=== PATIENT | male | born 1955 | race African-American/Black ===

== ENCOUNTER 2017-02-22 07:10 | Emergency (ER) | payer MEDICAID ==
[~2017-02-22] VITALS: Ht 185.4 cm; Wt 72.5 kg
[2017-02-22 07:12] VITALS: BP 121/81
== END 2017-02-22 09:10 | disposition left against medical advice (07) ==
LOC: ED 09:00
DX: F20.89 Other schizophrenia (principal); Z59.0 Homelessness
CPT/HCPCS: 99284

== ENCOUNTER 2017-04-10 03:16 | Emergency (ER) | payer MEDICAID ==
[~2017-04-10] VITALS: Ht 188 cm; Wt 80.0 kg
[2017-04-10] MEDS ORDERED: ACETAMINOPHEN 325 MG TABLET ONE (03:56)
[2017-04-10] MEDS ORDERED: ACETAMINOPHEN 325 MG TABLET PO ONE (04:00)
[2017-04-10 04:10] VITALS: BP 134/88
== END 2017-04-10 04:11 | disposition home or self-care (01) ==
LOC: ED 03:56
DX: M79.671 Pain in right foot (principal); M79.672 Pain in left foot; F20.9 Schizophrenia, unspecified
CPT/HCPCS: 99282

== ENCOUNTER 2017-08-05 00:31 | Emergency (ER) | payer MEDICAID ==
[~2017-08-05] VITALS: Ht 188 cm; Wt 80.0 kg
[2017-08-05 00:37] VITALS: BP 118/82
== END 2017-08-05 01:25 | disposition home or self-care (01) ==
LOC: ED 01:19
DX: B86 Scabies (principal); F20.9 Schizophrenia, unspecified; Z72.89 Other problems related to lifestyle; Z60.9 Problem related to social environment, unspecified
CPT/HCPCS: 99281

== ENCOUNTER 2017-10-26 20:23 | Emergency (ER) | payer MEDICAID ==
[~2017-10-26] VITALS: Ht 188 cm; Wt 97.0 kg
[2017-10-26 21:24] VITALS: BP 124/78
== END 2017-10-26 21:27 | disposition home or self-care (01) ==
LOC: ED 21:21
DX: B86 Scabies (principal); F20.9 Schizophrenia, unspecified; F17.200 Nicotine dependence, unspecified, uncomplicated
CPT/HCPCS: 99283

== ENCOUNTER 2018-01-05 20:14 | Emergency (ER) | payer MEDICAID ==
[~2018-01-05] VITALS: Ht 193 cm; Wt 80.0 kg
[2018-01-05 20:24] VITALS: BP 138/91
== END 2018-01-05 21:55 | disposition home or self-care (01) ==
LOC: ED 21:16
DX: M79.671 Pain in right foot (principal); M79.672 Pain in left foot; Z72.9 Problem related to lifestyle, unspecified; F17.200 Nicotine dependence, unspecified, uncomplicated
CPT/HCPCS: 99281

== ENCOUNTER 2018-01-06 09:05 | Emergency (ER) | payer MEDICAID ==
[~2018-01-06] VITALS: Ht 185.4 cm; Wt 75.2 kg
[2018-01-06 09:07] VITALS: BP 109/75
== END 2018-01-06 11:12 | disposition home or self-care (01) ==
LOC: ED 11:10
DX: S90.812A Abrasion, left foot, initial encounter (principal); S90.811A Abrasion, right foot, initial encounter; X58.XXXA Exposure to other specified factors, initial encounter; Y93.89 Activity, other specified; Y92.410 Unspecified street and highway as the place of occurrence of the external cause; Y99.8 Other external cause status
CPT/HCPCS: 99281

== ENCOUNTER 2019-01-22 03:48 | Inpatient (IN) | payer MEDICAID, OTHER ==
[~2019-01-22] VITALS: Ht 185.4 cm; Wt 74.0 kg
[2019-01-22] MEDS ORDERED: SODIUM CHLORIDE FLUSH 10ML SYR IVF ONE (05:30)
[2019-01-22 05:59] LABS: BASOPHILS # (AUTO) 0.01 x10^3/uL (0-0.1); BASOPHILS % (AUTO) 0 % (0-1); EOSINOPHILS # (AUTO) 0.04 x10^3/uL (0-0.4); EOSINOPHILS % (AUTO) 1 % (1-7); LYMPHOCYTES # (AUTO) 0.56 x10^3/uL (1-3.4); LYMPHOCYTES % (AUTO) 11 % (22-44); MD NO; MEAN CORPUSCULAR HEMOGLOBIN 31.6 pg (27.5-34.5); MEAN CORPUSCULAR HGB CONC 33.4 g/dL (33.2-36.2); MEAN CORPUSCULAR VOLUME 94.5 fL (81-97); MEAN PLATELET VOLUME 6.6 fL (7.4-10.4); MONOCYTES # (AUTO) 0.18 x10^3/uL (0.2-0.8); MONOCYTES % (AUTO) 3 % (2-9); NEUTROPHILS # (AUTO) 4.45 x10^3/uL (1.8-6.8); NEUTROPHILS % (AUTO) 85 % (42-75); PLATELET COUNT 284 x10^3/uL (130-400); RED BLOOD COUNT 4.73 x10^6/uL (4.38-5.82); RED CELL DISTRIBUTION WIDTH 13.1 % (9.4-14.8)
[2019-01-22 06:11] LABS: ALBUMIN 3.2 g/dL (3.4-5.0); ANION GAP 4 mmol/L (5-15); CHLORIDE 105 mmol/L (98-107)
[2019-01-22 06:14] LABS: ALANINE AMINOTRANSFERASE 22 U/L (12-78); ALKALINE PHOSPHATASE 109 U/L (45-117); BILIRUBIN,TOTAL 0.8 mg/dL (0.2-1.0); CREATININE 1.06 mg/dL (0.7-1.3); TOTAL PROTEIN 7.8 g/dL (6.4-8.2)
[2019-01-22] MEDS ORDERED: OMNIPAQUE 350 MG/ML, 100ML BOTTLE ONE (06:39)
[2019-01-22] MEDS ORDERED: SODIUM CHLORIDE 0.9% 1,000 ML IV ONE (07:30)
[2019-01-22 08:00] LABS: MICROSCOPIC NOT IND
[2019-01-22 08:07] LABS: CULTURE INDICATED? NO
[2019-01-22] MEDS ORDERED: ONDANSETRON ODT 4 MG PO PRN (09:00)
[2019-01-22] MEDS ORDERED: ONDANSETRON 2MG/ML, 2ML IVPush PRN (09:00)
[2019-01-22] MEDS ORDERED: LABETALOL 5MG/ML, 20ML IVPush PRN (09:00)
[2019-01-22] MEDS ORDERED: BUTALB/APAP/CAFFEINE 50MG/325MG/40MG PO PRN ×2 (09:00)
[2019-01-22] MEDS ORDERED: ACETAMINOPHEN 325 MG TABLET PO PRN (09:00)
[2019-01-22] MEDS ORDERED: hydrALAzine 20 MG/ML, 1ML IVPush PRN (09:00)
[2019-01-22] MEDS: NICOTINE 14MG/24 HR PATCH.TD24 TD SCH (09:00)
[2019-01-22] MEDS ORDERED: GUAIFENESIN/DM 200-20MG, 10ML UDC PO PRN (09:00)
[2019-01-22] MEDS ORDERED: POLYETHYLENE GLYCOL 17 GM PACKET PO PRN (09:00)
[2019-01-22] MEDS ORDERED: TRAZODONE 50MG TABLET PO PRN (09:00)
[2019-01-22] MEDS ORDERED: HYDROmorphone 2 MG/ML, 1ML IVPush PRN (09:00)
[2019-01-22] MEDS ORDERED: QUETIAPINE 100MG TABLET ONE (12:27)
[2019-01-22] MEDS: QUETIAPINE 100MG TABLET PO SCH ×2 (12:37→20:36)
[2019-01-22 13:40] VITALS: BP 110/68
[2019-01-22 21:04] VITALS: BP 112/69
[2019-01-23 01:45] VITALS: BP 105/67
[2019-01-23 05:39] LABS: BASOPHILS # (AUTO) 0.02 x10^3/uL (0-0.1); BASOPHILS % (AUTO) 0 % (0-1); EOSINOPHILS # (AUTO) 0.14 x10^3/uL (0-0.4); EOSINOPHILS % (AUTO) 2 % (1-7); LYMPHOCYTES % (AUTO) 15 % (22-44); MD NO; MEAN CORPUSCULAR HEMOGLOBIN 31.6 pg (27.5-34.5); MEAN CORPUSCULAR HGB CONC 32.7 g/dL (33.2-36.2); MEAN CORPUSCULAR VOLUME 96.5 fL (81-97); MEAN PLATELET VOLUME 6.8 fL (7.4-10.4); MONOCYTES # (AUTO) 0.38 x10^3/uL (0.2-0.8); MONOCYTES % (AUTO) 6 % (2-9); NEUTROPHILS # (AUTO) 4.49 x10^3/uL (1.8-6.8); NEUTROPHILS % (AUTO) 76 % (42-75); PLATELET COUNT 271 x10^3/uL (130-400); RED BLOOD COUNT 4.21 x10^6/uL (4.38-5.82); RED CELL DISTRIBUTION WIDTH 13.2 % (9.4-14.8)
[2019-01-23 05:44] LABS: ANION GAP 2 mmol/L (5-15); CALCIUM 8.6 mg/dL (8.5-10.1); CHLORIDE 108 mmol/L (98-107)
[2019-01-23 05:45] LABS: CREATININE 0.98 mg/dL (0.7-1.3)
[2019-01-23 08:30] VITALS: BP 110/68
[2019-01-23] MEDS ORDERED: HYDROmorphone 2 MG/ML, 1ML IVPush PRN (09:00)
[2019-01-23] MEDS: NICOTINE 14MG/24 HR PATCH.TD24 TD SCH (09:00)
[2019-01-23] MEDS: TAMSULOSIN 0.4 MG CAP.ER.24H PO SCH (09:09)
[2019-01-23] MEDS: QUETIAPINE 100MG TABLET PO SCH ×2 (09:09→20:33)
[2019-01-23] MEDS ORDERED: OMNIPAQUE 350 MG/ML, 100ML BOTTLE ONE (09:43)
[2019-01-23 13:30] VITALS: BP 126/74
[2019-01-23 20:39] VITALS: BP 103/67
[2019-01-24 03:26] VITALS: BP 104/66
[2019-01-24 06:13] LABS: BASOPHILS # (AUTO) 0.01 x10^3/uL (0-0.1); BASOPHILS % (AUTO) 0 % (0-1); EOSINOPHILS # (AUTO) 0.13 x10^3/uL (0-0.4); EOSINOPHILS % (AUTO) 2 % (1-7); LYMPHOCYTES # (AUTO) 0.91 x10^3/uL (1-3.4); LYMPHOCYTES % (AUTO) 16 % (22-44); MD NO; MEAN CORPUSCULAR HEMOGLOBIN 31.7 pg (27.5-34.5); MEAN CORPUSCULAR HGB CONC 32.8 g/dL (33.2-36.2); MEAN CORPUSCULAR VOLUME 96.9 fL (81-97); MEAN PLATELET VOLUME 6.7 fL (7.4-10.4); MONOCYTES # (AUTO) 0.49 x10^3/uL (0.2-0.8); MONOCYTES % (AUTO) 9 % (2-9); NEUTROPHILS # (AUTO) 4.21 x10^3/uL (1.8-6.8); NEUTROPHILS % (AUTO) 73 % (42-75); PLATELET COUNT 259 x10^3/uL (130-400); RED BLOOD COUNT 4.23 x10^6/uL (4.38-5.82); RED CELL DISTRIBUTION WIDTH 13.6 % (9.4-14.8)
[2019-01-24 06:31] LABS: ANION GAP 3 mmol/L (5-15); CALCIUM 8.6 mg/dL (8.5-10.1); CHLORIDE 106 mmol/L (98-107); CREATININE 1.14 mg/dL (0.7-1.3)
[2019-01-24 08:08] VITALS: BP 100/67
[2019-01-24] MEDS: NICOTINE 14MG/24 HR PATCH.TD24 TD SCH (09:00)
[2019-01-24] MEDS: QUETIAPINE 100MG TABLET PO SCH ×2 (09:12→20:43)
[2019-01-24] MEDS: TAMSULOSIN 0.4 MG CAP.ER.24H PO SCH (09:12)
[2019-01-24 14:09] VITALS: BP 110/72
[2019-01-24 21:46] VITALS: BP 107/69
[2019-01-25 01:35] VITALS: BP 92/59
[2019-01-25 07:16] VITALS: BP 104/67
[2019-01-25] MEDS: NICOTINE 14MG/24 HR PATCH.TD24 TD SCH (07:21)
[2019-01-25] MEDS: QUETIAPINE 100MG TABLET PO SCH ×2 (07:59→19:52)
[2019-01-25] MEDS: TAMSULOSIN 0.4 MG CAP.ER.24H PO SCH (07:59)
[2019-01-25 08:22] LABS: BASOPHILS # (AUTO) 0.03 x10^3/uL (0-0.1); BASOPHILS % (AUTO) 1 % (0-1); EOSINOPHILS # (AUTO) 0.14 x10^3/uL (0-0.4); EOSINOPHILS % (AUTO) 3 % (1-7); LYMPHOCYTES # (AUTO) 0.71 x10^3/uL (1-3.4); LYMPHOCYTES % (AUTO) 15 % (22-44); MD NO; MEAN CORPUSCULAR HEMOGLOBIN 31.7 pg (27.5-34.5); MEAN CORPUSCULAR HGB CONC 32.6 g/dL (33.2-36.2); MEAN PLATELET VOLUME 6.7 fL (7.4-10.4); MONOCYTES # (AUTO) 0.36 x10^3/uL (0.2-0.8); MONOCYTES % (AUTO) 8 % (2-9); NEUTROPHILS % (AUTO) 73 % (42-75); PLATELET COUNT 252 x10^3/uL (130-400); RED BLOOD COUNT 4.23 x10^6/uL (4.38-5.82); RED CELL DISTRIBUTION WIDTH 13.4 % (9.4-14.8)
[2019-01-25] MEDS ORDERED: TAMS-11 PO (12:23)
[2019-01-25] MEDS ORDERED: QUET100T PO (12:23)
[2019-01-25] MEDS ORDERED: POLY17PO5 PO (12:23)
[2019-01-25] MEDS ORDERED: BENZ100C PO (12:23)
[2019-01-25 13:26] VITALS: BP 102/66
[2019-01-25] MEDS ORDERED: BENZONATATE 100 MG CAPSULE PO SCH (16:00)
[2019-01-25 19:15] VITALS: BP 96/55
[2019-01-26 02:27] VITALS: BP 110/73
[2019-01-26 07:13] VITALS: BP 130/80
[2019-01-26] MEDS: QUETIAPINE 100MG TABLET PO SCH (08:43)
[2019-01-26] MEDS: NICOTINE 14MG/24 HR PATCH.TD24 TD SCH (08:44)
[2019-01-26] MEDS ORDERED: TAMSULOSIN 0.4 MG CAP.ER.24H PO SCH (09:00)
[2019-01-26] MEDS ORDERED: PRED10TA PO (10:29)
[2019-01-26] MEDS ORDERED: ALBU8.5H8 INH (10:30)
[2019-01-26] MEDS ORDERED: TIOT18CA INH (10:31)
[2019-01-26] MEDS ORDERED: BUDE10.2 INH (10:37)
== END 2019-01-26 13:44 | disposition home or self-care (01) | DRG 555 ==
LOC: ED 05:52 → EDIP 07:34 → 3N 13:08 → DCLOUNGE 01-26 13:25
PROVIDERS: ADMIT Family Medicine; ATTEND Hospitalist
DX: M79.81 Nontraumatic hematoma of soft tissue (principal); J96.01 Acute respiratory failure with hypoxia; E46 Unspecified protein-calorie malnutrition; Z68.21 Body mass index [BMI] 21.0-21.9, adult; F17.210 Nicotine dependence, cigarettes, uncomplicated; F20.9 Schizophrenia, unspecified; N26.1 Atrophy of kidney (terminal); Z59.0 Homelessness
CPT/HCPCS: 36415; 71046; 74174; 74177; 80048; 80053; 81003; 83690; 83735; 84100; 85025; 93005; 99285; G0103; G0378; J1170; Q9967; J7030; J7512

== ENCOUNTER 2019-01-28 22:49 | Emergency (ER) | payer MEDICAID, OTHER ==
[~2019-01-28] VITALS: Ht 185.4 cm; Wt 77.8 kg
[~2019-01-28 22:49] MED LIST: ALBU8.5H8 INH; BENZ100C PO; BUDE10.2 INH; POLY17PO5 PO; PRED10TA PO; QUET100T PO; TAMS-11 PO; TIOT18CA INH
[2019-01-28 23:55] LABS: BASOPHILS # (AUTO) 0.01 x10^3/uL (0-0.1); BASOPHILS % (AUTO) 0 % (0-1); EOSINOPHILS % (AUTO) 0 % (1-7); LYMPHOCYTES % (AUTO) 6 % (22-44); MD NO; MEAN CORPUSCULAR HEMOGLOBIN 31.5 pg (27.5-34.5); MEAN CORPUSCULAR HGB CONC 32.8 g/dL (33.2-36.2); MEAN PLATELET VOLUME 6.7 fL (7.4-10.4); MONOCYTES # (AUTO) 0.12 x10^3/uL (0.2-0.8); MONOCYTES % (AUTO) 2 % (2-9); NEUTROPHILS % (AUTO) 92 % (42-75); PLATELET COUNT 277 x10^3/uL (130-400); RED BLOOD COUNT 4.99 x10^6/uL (4.38-5.82); RED CELL DISTRIBUTION WIDTH 13.3 % (9.4-14.8)
[2019-01-28 23:58] LABS: ALBUMIN 3.9 g/dL (3.4-5.0); ANION GAP 7 mmol/L (5-15); CALCIUM 9.4 mg/dL (8.5-10.1); CHLORIDE 98 mmol/L (98-107); CREATININE 1.64 mg/dL (0.7-1.3)
--- NOTE | 2019-01-29 00:03 | NUR ---
THIS IS A 63 YO MALE COMING IN FOR "PAIN WHERE MY HEMATOMA IS" WHILE POINTING TO HIS URQ ABDOMEN. PATIENT IS SPEAKING ERRATICALLY WITH DARTING EYES, WHEN ASKED IF HE IS HAVING VISUAL HALLUCINATIONS, PATIENT STATES "SOMETIMES I SEE THINGS THAT AREN'T SUPPOSED TO BE THERE AND I DON'T KNOW WHY". DENIES SI/HI. PATIENT WAS C/O CHEST PAIN WITH COUGH IN TRIAGE, PLACED ON ENERGY MANAGEMENT SPECIALIST, NSR NOTED. DENIES CHEST PAIN IN ED ROOM. ON CONTINUOUS SPO2 AT 92%, CYCLE BP Q1HR. DENIES NEEDS AT THIS TIME.
[2019-01-29] MEDS ORDERED: KETOROLAC 30 MG/1 ML ONE (00:29)
--- NOTE | 2019-01-29 00:52 | NUR ---
PATIENT MEDICATED PER EMAR, TOLERATED WELL. DENIES NEEDS AT THIS TIME.
[2019-01-29] MEDS ORDERED: KETOROLAC 30 MG/1 ML IM ONE (01:00)
[2019-01-29 01:08] VITALS: BP 128/84
--- NOTE | 2019-01-29 01:11 | NUR ---
Patient/Caregiver given discharge instructions and they have confirmed that they understand the instructions. Patient ambulatory with steady gait.
== END 2019-01-29 01:25 | disposition home or self-care (01) ==
LOC: ED 01-29 01:19
DX: R07.89 Other chest pain (principal); F17.200 Nicotine dependence, unspecified, uncomplicated
CPT/HCPCS: 36415; 71046; 80048; 82040; 85025; 93005; 96372; 99284; J1885

== ENCOUNTER 2019-03-07 22:26 | Emergency (ER) | payer MEDICAID ==
[~2019-03-07] VITALS: Ht 185.4 cm; Wt 81.7 kg
--- NOTE | 2019-03-07 22:48 | NUR ---
TASK RN: PT PRESENTING TO ER FOR SI. PT STS "I RAN OUT OF MY INHALER THAT MADE THE VOICES STOP ABOUT 1.5WKS AGO. IM HERE TO GET ANOTHER ONE." PT STS FEELING LIKE HE IS GOING TO HARM SELF BECAUSE "THE VOICES ARE LEADING HIM WITH A COMPASS TO DO IT AND ITS THE ONLY WAY OUT". NO PLAN AT THIS TIME. PAST HX OF CUTTING WRISTS. PT CURRENTLY UNDRESSING, BELONGINGS GETTING LOCKED IN LOCKER. PT COOPERATIVE WITH STAFF REQUESTS AT THIS TIME. REPORT GIVEN TO BLAIRE DELA CRUZ.
--- NOTE | 2019-03-07 23:04 | NUR ---
Midlevel provider at bedside, assessing patient. Awaiting orders
[2019-03-07 23:44] LABS: ALBUMIN 3.5 g/dL (3.4-5.0); ANION GAP 9 mmol/L (5-15); CALCIUM 8.7 mg/dL (8.5-10.1); CHLORIDE 103 mmol/L (98-107); CREATININE 1.19 mg/dL (0.7-1.3); SALICYLATE LEVEL 3.2 mg/dL (2.8-20.0)
[2019-03-07 23:47] LABS: MEAN CORPUSCULAR HEMOGLOBIN 31.6 pg (27.5-34.5); MEAN CORPUSCULAR HGB CONC 33.2 g/dL (33.2-36.2); MEAN CORPUSCULAR VOLUME 95.2 fL (81-97); MEAN PLATELET VOLUME 7.2 fL (7.4-10.4); PLATELET COUNT 230 x10^3/uL (130-400); RED BLOOD COUNT 4.83 x10^6/uL (4.38-5.82); RED CELL DISTRIBUTION WIDTH 13.6 % (9.4-14.8)
[2019-03-08 00:21] LABS: BASOPHILS # (AUTO) 0.06 x10^3/uL (0-0.1); BASOPHILS % (AUTO) 1 % (0-1); EOSINOPHILS # (AUTO) 0.08 x10^3/uL (0-0.4); EOSINOPHILS % (AUTO) 2 % (1-7); LYMPHOCYTES # (AUTO) 1.33 x10^3/uL (1-3.4); LYMPHOCYTES % (AUTO) 30 % (22-44); MD SCAN; MONOCYTES # (AUTO) 0.31 x10^3/uL (0.2-0.8); MONOCYTES % (AUTO) 7 % (2-9); NEUTROPHILS # (AUTO) 2.68 x10^3/uL (1.8-6.8); NEUTROPHILS % (AUTO) 60 % (42-75)
--- NOTE | 2019-03-08 01:26 | NUR ---
TASK RN: PT COMPLIANT WITH VS. PT AWARE OF NEED FOR UA, STATES "I CAN'T RIGHT NOW".
--- NOTE | 2019-03-08 01:33 | NUR ---
Primary RN additional note added. Patient has been instructed to provide a urine sample; initially at 03/08 0000 then again about 010. Task RN also followed up and asked around 012. Primary Rn asked again at 0135 Patient states every time is unable to provide one at the moment but will be able to in the future, reports no problems urinating previously. No suprapubic tenderness.
--- NOTE | 2019-03-08 02:02 | NUR ---
Sitter in hallway, within visual contact within two steps of patient. Patient resting comfortably, awaiting urinary drug screen for disposition
[2019-03-08 02:09] LABS: AMPHETAMINE SCREEN, URINE Negative (Negative); BARBITURATE SCREEN, URINE Negative (Negative); BENZODIAZEPINE SCREEN, URINE Negative (Negative); CANNABINOID SCREEN, URINE Negative (Negative); COCAINE SCREEN, URINE Negative (Negative); METHADONE SCREEN, URINE Negative (Negative); OPIATE SCREEN, URINE Negative (Negative)
--- NOTE | 2019-03-08 02:26 | NUR ---
patient able to provide urine sample, collected and sent to lab. Labs resulted, orders placed for telepsych consult. Telepsych monitor at bedside.
--- NOTE | 2019-03-08 06:37 | NUR ---
SOC JUST SPOKE WITH DR. YO. PATIENT IS TO BE PLACED ON A HOLD.
--- NOTE | 2019-03-08 06:38 | NUR ---
Spoke with Dr. San. Gave report on vital signs and patients verbalizations for needing to come by ambulance to the emergency room. Psychiatrist completed evaluation over telemedicine unit. Patient returned to sleep after evaluation complete.
--- NOTE | 2019-03-08 06:55 | NUR ---
Gave report to diurnal RN. Revied patients recent complaint of running out of medications and now hearing voices telling him to kill himself and patient on legal hold at the moment. Awaiting placement.
--- NOTE | 2019-03-08 07:00 | NUR ---
REPORT RECEIVED. PT CURRENTLY SLEEPING WITH COVERS HIS HEAD, RESPIRATION UNIMPEEDED. SITTER OUTSIDE OF ROOM WITHIN SIGHT OF PT
--- NOTE | 2019-03-08 07:53 | NUR ---
ADDITIONAL REQUEST FOR SI BREAKFAST TRAY REQUESTED. PT CONTINUES TO BE RESTING IN SIT WITH SITTER.
--- NOTE | 2019-03-08 07:59 | NUR ---
ATTEMPTED TO DO PTS ASSESSMENT. MINIMALLY COMPELTED WHEN PT BECAME EXCESSIVELY AGGITATED AND YELLING. PT RETRACKED LEFT ARM IN THE APPERANCE OF WANTING TO STRIKE THIS RN. RN STOPPED ASSESSMENT AND INQUIRED ABOUT PTS WELL BEING, IF HE WAS HEARING THE VOICES, HURTING. PT STATED HE WAS HEARING THE VOICES AGAIN. REPORTS THE VOICES ARE FRIGHTENING BUT NOT CURRENTLY MAKING ANY SENCE. PT LAID BACK ON GURNEY AND COVERED HIS HEAD, CONTINUING TO YELL OUT. APPEARS TO BE YELLING AT THE VOICES. SITTER IN DIRECT SIGHT OF PT. ROOM SECURED FOR SI PRECAUTIONS. WILL ATTEMPT VS WHEN MEAL TRAY PROVIDED
--- NOTE | 2019-03-08 08:47 | NUR ---
BREAKFAST TRAY PROVIDED. PT CLOSED CURTAIN. RN IN ROOM AND DISCUSSED THAT CURTAIN COULD NOT BE CLOSED, THAT PT REQUIRED DIRECT VIEWING D/T CURRENT POC. PT YELLING THAT HE NEEDED PRIVACY. DOOR CLOSED FOR PTS PRIVACY, CURTAIN LEFT OPEN. SITTER OUTSIDE OF ROOM WITH DIRECT VIEW OF PT.
[2019-03-08 08:49] VITALS: BP 107/66
--- NOTE | 2019-03-08 09:53 | NUR ---
pt asleep. door open, curtain open. In direct line of slight of sitter. Respiration unimpeeded. no s/s of distress at this time. SI precautions maintained.
--- NOTE | 2019-03-08 11:00 | NUR ---
PT ASLEEP IN BED, BLANKET PULLED UP. RESPIRATIONS EVEN AND UNLABORED ON RA. NAD NOTED AT THIS TIME. SITTER OUTSIDE OF ROOM FOR DIRECT OBSERVATION AND Q15 MIN SAFETY CHECKS. PER THROUGHPUT, PT LIKELY TO TRANSFER TO .
--- NOTE | 2019-03-08 12:03 | NUR ---
pt asleep. door open, curtain open. In direct line of slight of sitter. Respiration unimpeeded. no s/s of distress at this time. SI precautions maintained. Pt allowed for assessment to be completed.
== END 2019-03-08 13:39 ==
LOC: ED 23:23
DX: F20.9 Schizophrenia, unspecified (principal)
CPT/HCPCS: 36415; 80048; 80307; 82040; 85025; 85379; 99285

== ENCOUNTER 2019-03-08 13:07 | Inpatient (IN) | payer MEDICAID ==
[~2019-03-08] VITALS: Ht 185.4 cm; Wt 67.6 kg
[2019-03-08 13:30] VITALS: BP 108/72
[2019-03-08 15:14] LABS: CHOL/HDL RATIO 2.5; FREE T4 (FREE THYROXINE) 1.27 ng/dL (0.76-1.46); LDL/HDL RATIO 1.2 (0.5-3.0)
[2019-03-08 16:10] VITALS: BP 108/72
[2019-03-08] MEDS ORDERED: POLYETHYLENE GLYCOL 17 GM PACKET PO PRN ×2 (16:30→17:30)
[2019-03-08] MEDS ORDERED: DOCUSATE 100 MG CAPSULE PO PRN ×2 (16:30→17:30)
[2019-03-08] MEDS ORDERED: ACETAMINOPHEN 325 MG TABLET PO PRN ×2 (16:30→17:30)
[2019-03-08] MEDS ORDERED: ONDANSETRON ODT 4 MG PO PRN (17:30)
[2019-03-08] MEDS ORDERED: IPRATROPIUM 0.5 MG/2.5 ML INHA NPPB PRN (18:00)
[2019-03-08] MEDS ORDERED: ALBUTEROL SULFATE 2.5 MG/3 ML NPPB PRN (18:00)
[2019-03-08] MEDS ORDERED: BUDESONIDE 0.5 MG/2 ML INHA NPPB PRN (18:00)
[2019-03-08] MEDS ORDERED: ALBUTEROL/IPRATROPIUM 2.5MG/0.5MG, 3 ML NPPB PRN (19:00)
[2019-03-08 20:36] VITALS: BP 114/79
[2019-03-08] MEDS: QUETIAPINE 100MG TABLET PO SCH (20:51)
[2019-03-08] MEDS: TEMPLATE NON-FORMULARY MED. (Budesonide/Formoterol Fumarate (Symbicort 160-4.5 Mcg Inhaler INH SCH (21:00)
[2019-03-09 07:11] VITALS: BP 109/72
[2019-03-09] MEDS: TEMPLATE NON-FORMULARY MED. (Budesonide/Formoterol Fumarate (Symbicort 160-4.5 Mcg Inhaler INH SCH ×2 (09:00→20:06)
[2019-03-09] MEDS: TEMPLATE NON-FORMULARY MED. (Tiotropium Bromide** (Spiriva**) 18 MCG) INH SCH (09:00)
[2019-03-09] MEDS: QUETIAPINE 100MG TABLET PO SCH ×2 (09:05→20:06)
[2019-03-09] MEDS: TAMSULOSIN 0.4 MG CAP.ER.24H PO SCH (09:05)
[2019-03-09 19:00] VITALS: BP 117/76
[2019-03-10 07:42] VITALS: BP 130/85
[2019-03-10] MEDS: QUETIAPINE 100MG TABLET PO SCH ×2 (08:28→20:33)
[2019-03-10] MEDS: TAMSULOSIN 0.4 MG CAP.ER.24H PO SCH (08:28)
[2019-03-10] MEDS: TEMPLATE NON-FORMULARY MED. (Tiotropium Bromide** (Spiriva**) 18 MCG) INH SCH (09:00)
[2019-03-10] MEDS: TEMPLATE NON-FORMULARY MED. (Budesonide/Formoterol Fumarate (Symbicort 160-4.5 Mcg Inhaler INH SCH ×2 (09:00→21:00)
[2019-03-10 19:21] VITALS: BP 102/62
[2019-03-11 07:31] VITALS: BP 115/76
[2019-03-11] MEDS: TEMPLATE NON-FORMULARY MED. (Tiotropium Bromide** (Spiriva**) 18 MCG) INH SCH (09:00)
[2019-03-11] MEDS: TEMPLATE NON-FORMULARY MED. (Budesonide/Formoterol Fumarate (Symbicort 160-4.5 Mcg Inhaler INH SCH ×2 (09:00→20:22)
[2019-03-11] MEDS: TAMSULOSIN 0.4 MG CAP.ER.24H PO SCH (09:14)
[2019-03-11] MEDS: QUETIAPINE 100MG TABLET PO SCH ×2 (09:14→20:25)
[2019-03-11] MEDS ORDERED: QUET100T PO (16:03)
[2019-03-11] MEDS ORDERED: TAMS-11 PO (16:03)
[2019-03-11 20:11] VITALS: BP 126/80
[2019-03-12 07:11] VITALS: BP 114/73
[2019-03-12] MEDS: TEMPLATE NON-FORMULARY MED. (Tiotropium Bromide** (Spiriva**) 18 MCG) INH SCH (09:00)
[2019-03-12] MEDS: TEMPLATE NON-FORMULARY MED. (Budesonide/Formoterol Fumarate (Symbicort 160-4.5 Mcg Inhaler INH SCH (09:00)
[2019-03-12] MEDS: QUETIAPINE 100MG TABLET PO SCH (09:12)
[2019-03-12] MEDS: TAMSULOSIN 0.4 MG CAP.ER.24H PO SCH (09:12)
== END 2019-03-12 11:11 | disposition home or self-care (01) | DRG 750 ==
LOC: 3E 13:56
PROVIDERS: ADMIT Psychiatry & Neurology Psychosomatic Medicine; ATTEND Psychiatry & Neurology Psychosomatic Medicine
DX: F20.0 Paranoid schizophrenia (principal); R45.851 Suicidal ideations; Z59.0 Homelessness; F17.210 Nicotine dependence, cigarettes, uncomplicated; J44.9 Chronic obstructive pulmonary disease, unspecified; N40.1 Benign prostatic hyperplasia with lower urinary tract symptoms; R33.8 Other retention of urine; Z79.899 Other long term (current) drug therapy; Z91.19 Patient's noncompliance with other medical treatment and regimen
CPT/HCPCS: 36415; 71045; 80061; 82140; 84439; 84443; 86592; 93005

== ENCOUNTER 2019-11-30 21:30 | Inpatient (IN) | payer MEDICAID ==
[~2019-11-30] VITALS: Ht 185.4 cm; Wt 70.8 kg
[2019-11-30 22:17] LABS: BASOPHILS % (AUTO) 1 % (0-1); EOSINOPHILS % (AUTO) 3 % (1-7); LYMPHOCYTES % (AUTO) 26 % (22-44); MD NO; MEAN CORPUSCULAR HEMOGLOBIN 30.6 pg (27.5-34.5); MEAN CORPUSCULAR HGB CONC 32.9 g/dL (33.2-36.2); MONOCYTES % (AUTO) 7 % (2-9); NEUTROPHILS % (AUTO) 63 % (42-75); PLATELET COUNT 235 x10^3/uL (130-400); RED BLOOD COUNT 5.15 x10^6/uL (4.38-5.82); RED CELL DISTRIBUTION WIDTH 14.9 % (9.4-14.8)
[2019-11-30 22:27] LABS: ALANINE AMINOTRANSFERASE 25 U/L (12-78); ALBUMIN 3.2 g/dL (3.4-5.0); ANION GAP 7 mmol/L (5-15); CALCIUM 9.1 mg/dL (8.5-10.1); CHLORIDE 109 mmol/L (98-107)
[2019-11-30 22:32] LABS: ALKALINE PHOSPHATASE 121 U/L (45-117); BILIRUBIN,TOTAL 0.7 mg/dL (0.2-1.0); TOTAL PROTEIN 7.7 g/dL (6.4-8.2); TROPONIN I < 0.015 ng/mL (0.000-0.045)
[2019-11-30 23:06] LABS: INTERNATIONAL NORMALIZED RATIO 8.42 (0.93-1.1); PROTHROMBIN TIME 87.4 Seconds (9.6-11.5)
--- NOTE | 2019-12-01 00:01 | NUR ---
ADMITTING AT BS.
[2019-12-01] MEDS ORDERED: MELATONIN 5 MG TABLET PO PRN (00:30)
[2019-12-01] MEDS ORDERED: ENALAPRILAT 1.25 MG/ML, 2ML IVPush PRN (00:30)
[2019-12-01] MEDS ORDERED: DOCUSATE 100 MG CAPSULE PO PRN (00:30)
[2019-12-01] MEDS ORDERED: ACETAMINOPHEN 325 MG TABLET PO PRN (00:30)
[2019-12-01 01:26] VITALS: BP 95/65
[2019-12-01] MEDS ORDERED: SODIUM CHLORIDE 0.9% 1,000 ML IV SCH (01:30)
[2019-12-01] MEDS ORDERED: ALBUTEROL HFA 90 MCG/SPRAY INH PRN (03:00)
[2019-12-01 05:41] LABS: BASOPHILS % (AUTO) 1 % (0-1); EOSINOPHILS % (AUTO) 6 % (1-7); LYMPHOCYTES % (AUTO) 36 % (22-44); MEAN CORPUSCULAR HEMOGLOBIN 30.5 pg (27.5-34.5); MEAN CORPUSCULAR HGB CONC 32.9 g/dL (33.2-36.2); MEAN PLATELET VOLUME 6.9 fL (7.4-10.4); MONOCYTES % (AUTO) 8 % (2-9); NEUTROPHILS % (AUTO) 48 % (42-75); PLATELET COUNT 213 x10^3/uL (130-400); RED BLOOD COUNT 4.72 x10^6/uL (4.38-5.82); RED CELL DISTRIBUTION WIDTH 14.8 % (9.4-14.8)
[2019-12-01 05:51] LABS: MD NO
[2019-12-01 05:54] LABS: ANION GAP 5 mmol/L (5-15); CALCIUM 8.3 mg/dL (8.5-10.1); CHLORIDE 114 mmol/L (98-107); CREATININE 1.14 mg/dL (0.7-1.3)
[2019-12-01 06:04] LABS: TROPONIN I < 0.015 ng/mL (0.000-0.045)
[2019-12-01 08:47] VITALS: BP 94/68
[2019-12-01] MEDS ORDERED: FLUTICASONE/VILANTEROL 200-25MCG/INH INH SCH (09:00)
[2019-12-01] MEDS ORDERED: TIOTROPIUM BROMIDE 18 MCG/INH INH SCH (09:00)
[2019-12-02] MEDS ORDERED: SODIUM CHLORIDE 0.9% 1,000 ML IV SCH (01:30)
== END 2019-12-01 09:41 | disposition left against medical advice (07) | DRG 133 ==
LOC: ED 21:59 → EDIP 23:56 → 5SO 12-01 00:53
PROVIDERS: ADMIT Internal Medicine; ATTEND Internal Medicine
DX: J96.00 Acute respiratory failure, unspecified whether with hypoxia or hypercapnia (principal); J44.1 Chronic obstructive pulmonary disease with (acute) exacerbation; F17.210 Nicotine dependence, cigarettes, uncomplicated; F20.9 Schizophrenia, unspecified; N17.0 Acute kidney failure with tubular necrosis; N40.0 Benign prostatic hyperplasia without lower urinary tract symptoms; R94.31 Abnormal electrocardiogram [ECG] [EKG]; S30.1XXA Contusion of abdominal wall, initial encounter; Z59.0 Homelessness; Z79.01 Long term (current) use of anticoagulants; Z86.711 Personal history of pulmonary embolism; Z72.89 Other problems related to lifestyle
CPT/HCPCS: 36415; 71045; 80048; 80053; 83735; 83880; 84100; 84443; 84484; 85025; 85610; 93005; J7030; J7512